=== PATIENT | female | born 1965 | race Caucasian/White ===

== ENCOUNTER 2024-10-25 19:52 | Inpatient (IN) | payer OTHER, SELFPAY ==
[2024-10-25] VITALS (7 sets, daily range): BP systolic 107–126; BP diastolic 67–95; BMI 44.5; BMI 44.2
[2024-10-25 15:41] LABS: % Basophils 0.1 % (0-2); % Eosinophils 0.9 % (0-6); % Immature Granulocytes 0.4 % (0-0.5); % Lymphocytes 16.7 % (20.5-51.1); % Monocytes 5.7 % (1.7-9.3); % Neutrophils 76.2 % (42.2-75.2); Absolute Eosinophils 0.1 10^3/uL (0-0.7); Absolute Lymphocytes 1.2 10^3/uL (1.2-3.4); Absolute Monocytes 0.4 10^3/uL (0.1-0.6); Absolute Neutrophils 5.6 10^3/uL (1.4-6.5); Hematocrit 36.2 % (37.0-47.0); Hemoglobin 12.3 g/dL (12.0-16.0); Mean Corpuscular Volume 88.3 fL (81.0-99.0); Nucleated Red Blood Cells % 0 %; Platelet Count 242 10^3/uL (130-400); Red Cell Dist. Width 13.2 % (11.5-14.5); White Blood Cell Count 7.4 10^3/uL (4.8-10.8)
[2024-10-25 15:55] LABS: ALT (SGPT) 30 U/L (0-35); AST (SGOT) 33 U/L (14-36); Albumin 4.2 g/dl (3.5-5.0); Alkaline Phosphatase 89 U/L (38-126); Blood Urea Nitrogen 19 mg/dl (7-17); COVID-19 Antigen Negative (Negative); Calcium 9.4 mg/dl (8.4-10.2); Carbon Dioxide 24 mmol/L (22-30); Chloride 101 mmol/L (98-107); Glucose 129 mg/dl (70-99); Potassium 4.6 mmol/L (3.5-5.1); Sodium 136 mmol/L (135-145); Total Bilirubin 0.2 mg/dl (0.2-1.3); Total Protein 6.8 g/dl (6.3-8.2); eGFR > 60.00
--- NOTE | 2024-10-25 16:01 | ED.GENMED ---
History of Present Illness
General
Chief Complaint: Breathing Problem
Source: patient
Exam Limitations: none
Time Seen by Provider: 10/25/24 15:38
Nursing documentation reviewed up to this point in time: agreed with
History of Present Illness
History of Present Illness:
58 y/o F
h/ obreast cancer treated with double mastectomy and chemo/radiation in the past
here with 1 week URI sxs, sore throat, cough; bu tthen fever x 2-3 days with increased SOB today
pt says her family has similar symptoms of cold symptoms and they are getting better and she is worse
she has not had any leg swelling, ,recent travel, h/o DVT/PT
pt wastaking tylenol the past 2 days, 1500 mg per dose a few times a day
none today
frequently coughing
no h/o wheezing/copd
Past History
Past History
ED Past Medical History: Cancer (breast)
ED Past Surgical History: Urological and Other (Mastectomy bilateral)
Social History
Tobacco: Smoker
Alcohol: None
Drug: None
Personal:
Living: with family
Employment: Other (Noncontributory)
Family History
Family History: Other (Noncontributory)
Review of Systems
Review of Systems
Allergies reviewed?: Yes
All Other Systems: Not applicable
Phy Exam
Physical Exam
Physical Exam:
GENERAL: Alert , tachypneic, frequently coughing
EYE: pupils equal and reactive
NECK: Supple
ENT: b/l TM s clear, pharynx erythematous but no tonsillar hypertrophy or exudates
CARDIAC: Tachycardic, no edema
LUNGS: Frequent spastic cough, expiratory wheezing throughout, mild tachypnea
ABDOMEN: Soft, without focal tenderness, no r/g, no cvat, normal bowel sounds
NEUROLOGICAL: Alert and oriented, no focal neuro deficits
SKIN: Warm and diaphoretic, skin intact.
MUSCULOSKELETAL: No edema, well perfused.
PSYCH: Normal and appropriate interaction.
Scores
Heart Failure Risk
Heart Failure Risk Score: Not Applicable
Sepsis
Sepsis Screening
Sepsis Assessment: Sepsis
Sepsis Screen
Sepsis Screen: Sepsis
Date: 10/25/24
Time: 17:06
Course
Orders/Labs/Results
Orders:
Orders
10/25/24 15:12
EKG [Electrocardiogram (*1)] Urgent
Reason for Study: Shortness of Breath
CR Chest - 2 Views Urgent
Comment:
Reason For Exam: SOB, cough
10/25/24 15:13
EKG- Treatment ONCE
10/25/24 15:25
Acetaminophen Urgent
Comment: ADDON
COVID-19 Antigen Urgent
Source: Nasal Swab
Complete Blood Count/With Diff Urgent
Comprehensive Metabolic Panel Urgent
Influenza A+B Rapid Molecular Urgent
MARAL Source: Nasal Swab
Specimen Description:
10/25/24 15:58
Add On- LAB Urgent
Tests Added?: tylenol level
0.9% Sodium Chloride 1000 ml [Nss] 1,000 ml IV BOLUS
Dexamethasone Sod Phosphate [Decadron] 10 mg IV NOW STA
Ibuprofen [Motrin] 800 mg PO NOW STA
Ipratropium/Albuterol Sulfate [Duoneb] 3 ml INH R NOW STA
10/25/24 15:59
Lactic Acid Urgent
10/25/24 16:00
Lactic Acid Q4H
Comment: CANCEL 2nd LACTIC ACID IF 1st LACTIC ACID IS LESS THAN 2
10/25/24 16:58
Blood Culture Urgent
MARAL Source: Blood/Venous
Specimen Description:
Azithromycin 500 mg/250 ml [Zithromax Infusion] 500 mg in 250 ml IV NOW
CefTRIAXone [Rocephin] 1,000 mg IV NOW STA
Ipratropium/Albuterol Sulfate [Duoneb] 3 ml INH R NOW STA
Oseltamivir Phosphate [Tamiflu] 75 mg PO NOW STA
10/25/24 20:00
Lactic Acid Q4H
Comment: CANCEL 2nd LACTIC ACID IF 1st LACTIC ACID IS LESS THAN 2
Abnormal Lab Results
10/25/24
15:25
RBC 4.10 L 10^6/uL
(4.20-5.40)
Hct 36.2 L %
(37.0-47.0)
Neutrophils % 76.2 H %
(42.2-75.2)
Lymphocytes % 16.7 L %
(20.5-51.1)
BUN 19 H mg/dl
(7-17)
Glucose 129 H mg/dl
(70-99)
10/25/24 15:25
10/25/24 15:25
Vital Signs
Initial and Last Documented VS:
Initial Vital Signs
Temp Pulse Resp Pulse Ox
39.3 C H 131 18 98
10/25/24 15:11 10/25/24 15:11 10/25/24 15:11 10/25/24 15:11
Last Documented Vital Signs
Temp Pulse Resp Pulse Ox
39.1 C H 131 18 98
10/25/24 15:53 10/25/24 15:11 10/25/24 15:11 10/25/24 15:11
MDM/Problems Addressed
Differential Diagnosis Includes:
flu, pna, copd, covid, pe
MDM/Problems Addressed:
58 y/o F smoker, h/o remote breast Ca
1 week uri sxs, fever x 2-3 days, sob today
febrile, tachy, not hypoxic, tachypneic, wheezing, spastic cough
flu A +
cxr with interstitial PNA right upper and middle lobe
doubt PE; tachycardia resolving with ivf, tylenol
but wheezing persists
tachypnea did not improve
will admit
getting duonebs, steroids, tamiflu, abx
*Critical Care Note
Total Time (30-74mins, 75-104mins- exclusive of procedures): Not Applicable
ED Attending Note
-
Portions of this chart may have been created with voice recognition software.� Occasional wrong word or��sound alike� substitutions may have occurred due to the inherent limitations of voice recognition software.
Discharge Plan
Departure
Patient Disposition: Admit
Date of Disposition: 10/25/24
Time of Disposition: 16:59
Admit to: Telemetry
Presentation/result/management discussed w/ accepting MD/DO: Hospitalist
Condition: Fair
Covid-19: Not Applicable
Discharge Problem:
Influenza A, Pneumonia, Acute bronchospasm
Prescriptions:
No Action
lorazepam 0.5 MG tablet
0.5 mg PO DAILYPRN PRN (Reason: anxiety)
Advil PM 1 TAB tablet
1 tab PO HSPRN PRN (Reason: sleep)
cyanocobalamin (vitamin B-12) 1,000 MCG tablet
1,000 mcg PO HS
Letrozole
1 tab PO DAILY
Patient Comments:
pt does not know mg
sertraline 150 mg Capsule
150 mg PO HS
lutein
1 cap PO DAILY
Patient Comments:
pt does not know mg
hydrocodone-acetaminophen 5-325 mg Tablet
2 tab PO Q4HPRN PRN (Reason: dental pain)
Amoxicillin Clavulanate
125 mg PO BID
Referrals:
SNELL,ROSALBA [Other]
Interventions
Interventions:
*Risk Screen - Suicide Last Done: 10/25/24 15:11
*General Assessment Last Done: 10/25/24 15:11
*Neglect/Abuse Screening Last Done: 10/25/24 15:11
*ED COVID-19 Vaccine History Last Done: 10/25/24 15:11
Discharge Date and Time
Print Language: WELSH
[2024-10-25] MEDS: DUONEB 3 ML INH ×2 (16:02→17:09)
[2024-10-25] MEDS: DECADRON 10 MG IV (16:02)
[2024-10-25] MEDS: MOTRIN 800 MG PO (16:02)
[2024-10-25] MEDS: NSS 1000 IV ×3 (16:03→23:08)
[2024-10-25] MEDS: TAMIFLU 75 MG PO (17:11)
[2024-10-25] MEDS: ROCEPHIN 1000 MG IV (17:11)
[2024-10-25] MEDS: ZITHROMAX INFUSION 250 IV (17:11)
[2024-10-25 17:28] LABS: Acetaminophen 17 ug/ml (10-30)
--- NOTE | 2024-10-25 19:20 | HPS.HSE ---
Family Physician
-
Family Physician: ROSALBA SNELL
Chief Complaint
-
Cough
History of Present Illness
58 woman with h/o breast cancer (treated with double mastectomy and chemo/radiation in the past) comes in with 1 week URI sxs, sore throat, cough; also fever x 2-3 days with increased SOB today. pt says her family has had similar symptoms of cold
symptoms and they are getting better and she is getting worse. she has not had any leg swelling, ,recent travel, h/o DVT/PT. She is an active smoker. No flu shot this year.
Medical History
Past Medical History
Past Medical History: Reports Other
Additional Past Medical History:
Cancer (breast)
Mastectomy bilateral
Cellulitis of chest wall with abscess
DVT
Past Surgical History: Reports Other
Additional Past Surgical History:
See above
Social History
Tobacco: Smoker
Alcohol: None
Drug: None
Family History
Family History: Not pertinent
Allergies / Home Medications
Allergies reflects when Allergies were last updated in [facility].
Home Medications with original date entered in [facility]
Allergy/Medication List:
Allergies
Allergy/AdvReac Type Severity Reaction Status Date / Time
No Known Allergies Allergy Verified 10/25/24 15:14
Home Medications
lorazepam 0.5 mg tablet 0.5 mg PO DAILYPRN PRN anxiety 11/17/19
ibuprofen-diphenhydramine citrate 200 mg-38 mg tablet (Advil PM) 1.5 tab PO HS 03/17/20
letrozole 2.5 mg tablet 2.5 mg PO HS 12/04/21
acetaminophen 500 mg tablet (Tylenol Extra Strength) 1,000 mg PO Q6HPRN PRN mild pain/fever 10/25/24
sertraline 100 mg tablet 150 mg PO HS 10/25/24
Review of Systems
-
History Source: Patient
A 12 point ROS was completed and negative except as noted: Yes
Physical Exam
Vital Signs
Vital Signs
Temp Pulse Resp BP Pulse Ox
98.4 F 101 20 125/94 97
10/25/24 18:54 10/25/24 18:45 10/25/24 18:45 10/25/24 17:00 10/25/24 18:45
Physical Exam
General: Well Nourished, Respiratory Distress, Appears Chronically Ill and Morbidly Obese
HEENT: No Ptosis, Nose Appears Normal and Ears Appear Normal
Respiratory: Wheezes, Rales, Rhonchi, Crackles and Decreased Breath Sounds
Cardiac: S1/S2 and Regular Rhythm
GI: Soft, Non Tender and Non Distended
Musculoskeletal: No Clubbing, No Cyanosis, Edema, Left Lower Extremity and Edema, Right Lower Extremity
Skin: Warm and Dry; No Rash or Jaundice
Neuro: Awake, Alert, Oriented and AO x 3
Psych: Calm
Laboratory Results
-
10/25/24 15:25
10/25/24 15:25
Laboratory Results
Lactic Acid Cancelled 10/25/24 20:00
Total Bilirubin 0.2 mg/dl (0.2-1.3) 10/25/24 15:25
AST 33 U/L (14-36) 10/25/24 15:25
ALT 30 U/L (0-35) 10/25/24 15:25
Alkaline Phosphatase 89 U/L (38-126) 10/25/24 15:25
Data Reviewed
-
Lab Data: Labs Reviewed by me
Impression/Plan
-
IMPRESSION:
58 woman with PNA and influenza. Low blood pressure of 60/30 during my exam.
PLAN:
1. Sepsis - pulmonary source
IMU admit
IV fluids per sepsis protocol
Pressors if needed (if no response to fluids)
Tamiflu
Antibiotics
2. Continued smoking - wilton her to quit
Nicotine patch
3. H/O breast cancer
Continue BC meds
Full code
Heparin and VCD for DVTp (has h/o DVT)
[2024-10-25] MEDS: ZOSYN 100 IV (23:08)
[2024-10-25] MEDS: DECADRON 4 MG IV (23:09)
[2024-10-25] MEDS: FEMARA 2.5 MG PO (23:11)
[2024-10-25] MEDS: ZOLOFT 150 MG PO (23:17)
[2024-10-25] MEDS: HEPARIN 5000 UNITS SC (23:20)
[2024-10-25] MEDS: MELATONIN 5 MG PO (23:51)
[2024-10-26 03:34] VITALS: BP 106/62
[2024-10-26] MEDS: ZOSYN 100 IV ×2 (04:42→10:39)
[2024-10-26] MEDS: DECADRON 4 MG IV ×2 (04:42→10:39)
[2024-10-26] MEDS: NSS 1000 IV ×2 (05:48→08:27)
[2024-10-26 07:28] LABS: Hematocrit 33.9 % (37.0-47.0); Hemoglobin 11.7 g/dL (12.0-16.0); Mean Corp Hgb Conc. 34.5 g/dL (33.0-37.0); Mean Corpuscular Hgb 30.6 pg (27.0-31.0); Mean Corpuscular Volume 88.7 fL (81.0-99.0); Mean Platelet Volume 9.3 fL (7.4-10.4); Platelet Count 239 10^3/uL (130-400); Red Blood Cell Count 3.82 10^6/uL (4.20-5.40); Red Cell Dist. Width 13.4 % (11.5-14.5); White Blood Cell Count 7.3 10^3/uL (4.8-10.8)
[2024-10-26 07:57] VITALS: BP 98/63
[2024-10-26 08:05] LABS: ALT (SGPT) 26 U/L (0-35); AST (SGOT) 25 U/L (14-36); Albumin 3.9 g/dl (3.5-5.0); Alkaline Phosphatase 94 U/L (38-126); Blood Urea Nitrogen 18 mg/dl (7-17); Carbon Dioxide 17 mmol/L (22-30); Chloride 110 mmol/L (98-107); Estimated Creatinine Clearance > 125 ml/min; Glucose 193 mg/dl (70-99); Potassium 4.6 mmol/L (3.5-5.1); Sodium 138 mmol/L (135-145); Total Bilirubin < 0.1 mg/dl (0.2-1.3); Total Protein 6.5 g/dl (6.3-8.2); eGFR > 60.00
[2024-10-26] MEDS: NICODERM TRANSDERMAL 21 MG TRANSDERM (08:28)
[2024-10-26] MEDS: HEPARIN 5000 UNITS SC ×3 (08:29→23:03)
--- NOTE | 2024-10-26 09:31 | CON.INTV ---
Consultation
Consultation Request
Date/Time Consultation Requested: 10/25/20242105
Date/Time Consultation Performed: 10/26/2024919
Requesting Provider: Dr. Olivas
Performing Provider: Dr. Peterson
Reason for Consultation: PNA
Medical History
-
Chief Complaint: Cold/flu symptoms with fever and cough
History of Present Illness:
58-year-old female with a past medical history of right-sided breast cancer s/p bilateral mastectomy s/p chemotherapy/XRT who presents with flulike symptoms for 1 week with fever and cough. Family is also sick. Patient developed worsening
shortness of breath prior to arrival. She has denied recent leg swelling, recent travel, history of DVT/PE. She is an active tobacco smoker. Initially in the ER she was febrile to 102.8 �F, pulse rate 131, breathing at 18 breaths/min, BP 126/70
and saturating 98% on room air. Initial labs showed Hb 12.3, COVID antigen negative. Flu swab was positive for influenza A. Blood cultures were collected. Imaging showed concern for right upper + right middle lobe interstitial pneumonia. In the
ER she was given 1 L NS 0.9%, ceftriaxone/Zithromax, Decadron 10 mg, ibuprofen, DuoNebs and Tamiflu. She was admitted to the hospitalist service and telemetry and seal delivery vehicle team technician/pulmonary service consulted for additional management/recommendations.
When I saw the patient she was resting in bed, on room air breathing comfortably. She endorses shortness of breath as well as a dry cough. She says that all 4 of her kids and were sick recently. She currently feels nauseous and is having
heartburn. Also feels stuffed in her nose. She is continue to smoke, and has been smoking 1 pack/day for ~43 years, started smoking at age 15. She currently denies chest pain, HERNANDEZ, diarrhea, fevers or chills.
PMHx: Right breast cancer s/p bilateral mastectomy and chemotherapy/XRT, history of left breast infection
PSHx: Right breast biopsy (05/2019), bilateral mastectomy with right sentinel node mapping and biopsy with lymphatic mapping
Past Medical History
Past Medical History: Other (Above as per HPI)
Past Surgical History: Other (Above as per HPI)
Social History
Tobacco: Smoker (Started smoking at age 15, 1 PPD x 43 years)
Alcohol: None
Drug: None
Family History
Family History: CAD (Mother) and Other (Father: Stroke)
Allergies / Home Medications
Allergies
Allergy/AdvReac Type Severity Reaction Status Date / Time
No Known Allergies Allergy Verified 10/25/24 15:14
Home Medications
�Medication �Instructions �Recorded �Confirmed �Last Taken �Type
lorazepam 0.5 mg tablet 0.5 mg PO DAILYPRN PRN anxiety 11/17/19 10/25/24 2 Weeks Ago History
~03/03/20
ibuprofen-diphenhydramine citrate 1.5 tab PO HS 03/17/20 10/25/24 10/24/24 History
200 mg-38 mg tablet (Advil PM)
letrozole 2.5 mg tablet 2.5 mg PO HS 12/04/21 10/25/24 10/24/24 History
acetaminophen 500 mg tablet 1,000 mg PO Q6HPRN PRN mild 10/25/24 10/25/24 10/25/24 History
(Tylenol Extra Strength) pain/fever
sertraline 100 mg tablet 150 mg PO HS 10/25/24 10/25/24 10/24/24 History
Review of Systems
-
History Source: Patient
All other systems: Negative unless noted
Vitals / Labs / Diagnostic Testing
Vital Signs
Temp Pulse Resp BP Pulse Ox
98.3 F 69 18 116/7 97
10/26/24 15:33 10/26/24 15:33 10/26/24 15:33 10/26/24 15:33 10/26/24 15:33
Lab Data
10/26/24 07:13
10/26/24 07:13
Microbiology
10/25/24 23:55 Blood/Venous Blood Culture - Preliminary
No Growth in 24 hours- Final report to follow
10/25/24 15:25 Nasal Swab Influenza Types A & B (GRACIELA) - Final
Influenza A Positive, NAAT
Diagnostic Testing:
Physical Exam
-
HEENT: Normocephalic, Anicteric and Other (Thick neck)
Cardiovascular: S1/S2 and Peripheral Edema (negative)
Respiratory: Wheeze (negative), Rhonchi (negative), Non-Labored Respirations and Other (Coarse breath sounds heard bilaterally)
GI: Soft, Distended (Abdominal obesity), Non Tender and Normal Bowel Sounds
Neurology: AO x 3 and Tremors (negative)
Skin: Warm and Dry
General: Respiratory Distress (negative), Comfortable, Fever (negative) and Chills (negative)
Assessment
-
Assessment: 58-year-old female with a past medical history of right-sided breast cancer s/p bilateral mastectomy s/p chemotherapy/XRT who presents with flulike symptoms for 1 week with fever and cough. Family is also sick. Patient developed
worsening shortness of breath prior to arrival. She has denied recent leg swelling, recent travel, history of DVT/PE. She is an active tobacco smoker. Initially in the ER she was febrile to 102.8 �F, pulse rate 131, breathing at 18 breaths/min,
BP 126/70 and saturating 98% on room air. Initial labs showed Hb 12.3, COVID antigen negative. Flu swab was positive for influenza A. Blood cultures were collected. Imaging showed concern for right upper + right middle lobe interstitial
pneumonia. In the ER she was given 1 L NS 0.9%, ceftriaxone/Zithromax, Decadron 10 mg, ibuprofen, DuoNebs and Tamiflu. She was admitted to the hospitalist service and telemetry and seal delivery vehicle team technician/pulmonary service consulted for additional
management/recommendations.
Chronic conditions RN ACUTE DIALYSIS: Right breast cancer s/p bilateral mastectomy and chemotherapy/XRT, history of left breast infection
Impression:
#Acute respiratory failure with hypoxia now on room air due to influenza A
#Influenza A pneumonia
#History of right-sided breast cancer s/p bilateral mastectomy and chemotherapy/XRT
#Morbid obesity with BMI: 44.1
#Active tobacco use
Plan:
- Given that symptoms of her flu have started >48 hours ago, no current indication for Tamiflu
- Although CXR is read as right upper/right middle lobe interstitial pneumonia, I do not appreciate any obvious consolidation and any increased opacification is likely due to her influenza virus
- Continue with empiric antibiotics (ceftriaxone/Zithromax) as per hospitalist, but if she remains afebrile with normal WBC by tomorrow then would narrow antibiotics and give short course or consider stopping altogether
- Follow-up blood cultures x 3 (collected 10/25/2024)
- Would start scheduled DuoNebs QID with prn doses in between for breakthrough symptoms
- Nicotine patch; strongly encouraged to quit smoking
- Recommend outpatient pulmonary office follow up for full PFTs and symptom management
- Maintain SpO2 >90-94% with supplemental O2 if needed
- Given that pt has a dry cough, I will start a LABA/ICS with Symbicort 160mcg; she should be discharged on this (or an equivalent inhaler) until she sees us in the office
- Antitussants with tessalon perles
- Start ocean mist nasal spray QID
- Start pepcid for her heartburn and prn zofran (trend QTc: 430ms on 10/25/2024)
- Maintain MAP>65
- Replete electrolytes with K>4, Mg>2
- Maintain euglycemia with goal BG 140-180
- Trend H/H and transfuse if needed to keep Hb>7g/dL; keep plt>20k, unless there is concern for bleeding then keep plt>50k
- Incentive spirometer encouraged 10x per hour for at least 4 hrs a day
- DVT ppx: HSQ
Continue management on telemetry. Pulmonary service will continue to follow along. Outpatient office follow-up will also be arranged for discussion of LDCT chest imaging for lung cancer screening/PFT and discussion of sleep disordered breathing.
Data:
CXR 10/25/2024: Right upper lobe and right middle lobe interstitial pneumonia
Total time spent today was 56 minutes for this encounter. Time includes reviewing laboratory test/imaging results, reviewing pertinent medical records, obtaining and reviewing medical history, performing an appropriate exam, ordering medications,
tests and procedures. Time also includes documentation of this encounter, coordinating patient care and communicating with other healthcare professionals. Total time does not include separately billed tests performed on this date of service.
[2024-10-26 09:45] LABS: Glycohemoglobin (HgbA1c) 6.4 % (4.0-5.6)
[2024-10-26 11:16] VITALS: BP 126/72
--- NOTE | 2024-10-26 11:25 | W.PN.HOSP.TC ---
Today's Communication/Plan
-
Stop fluids
Wean O2 as tolerated
Ceftriaxone, azithromycin
Cultures
Stop steroids, monitor
Status parameter, Acapella
Assessment / Plan
Assessment / Plan
Physical Exam
General: Well Nourished, Respiratory Distress, Appears Chronically Ill and Morbidly Obese
HEENT: No Ptosis, Nose Appears Normal and Ears Appear Normal
Respiratory: Wheezes, Rales, Rhonchi, Crackles and Decreased Breath Sounds
Cardiac: S1/S2 and Regular Rhythm
GI: Soft, Non Tender and Non Distended
Musculoskeletal: No Clubbing, No Cyanosis, Edema, Left Lower Extremity and Edema, Right Lower Extremity
Skin: Warm and Dry; No Rash or Jaundice
Neuro: Awake, Alert, Oriented and AO x 3
Psych: Calm
#Sepsis
#Hypoxia
#Influenza
� Status post fluids
� Can continue antibiotics, switch ceftriaxone, azithromycin
� Follow-up procalcitonin
� Follow-up sputum cultures expectorating, Legionella, strep pneumo
� Symptom started 1 week ago, out of range for Tamiflu
� Discontinue steroids, history of COPD, no evidence of bronchospasm�if bronchospasms recur, can reinitiate steroids
� Wean O2 as tolerated
� incentive spirometry, Acapella
#Non-anion gap metabolic acidosis
� Secondary to saline infusion
� Stop normal saline, monitor bicarb
#Tobacco use
� Counseled on cessation
� Nicotine patch
#History of breast cancer
� Continue medications
#DVT prophylaxis
� HSQ
Anticipated Discharge: 24 - 48 hours
Subjective/Interval History
-
Date of Service: October 26, 2024
Coughing with pleuritic pain.
Objective Data
-
Labs:
Laboratory Results
10/26/24
07:13
WBC 7.3
Hgb 11.7 L
Hct 33.9 L
Plt Count 239
Sodium 138
Potassium 4.6
Chloride 110 H
Carbon Dioxide 17 L
BUN 18 H
Creatinine 0.6
Glucose 193 H
Calcium 9.0
Total Bilirubin < 0.1 L
AST 25
ALT 26
Alkaline Phosphatase 94
Vital Signs:
Vital Signs
Temp Pulse Resp BP Pulse Ox
97.8 F 73 16 126/72 98
10/26/24 11:16 10/26/24 11:16 10/26/24 11:16 10/26/24 11:16 10/26/24 11:16
I&O
10/25/24 10/26/24 10/27/24
06:59 06:59 06:59
Intake Total 2760 / 2760
Balance 2760 / 2760
Review of Systems
-
History Source: Patient
All other systems: Not reviewed unless documented
Data Reviewed
-
Diagnostic Radiology: Report Reviewed by me
Labs: Labs Reviewed by me
[2024-10-26] MEDS: TYLENOL 1000 MG PO (13:22)
[2024-10-26 15:30] LABS: Procalcitonin < 0.05 ng/ml (0.0-0.25)
[2024-10-26 15:33] VITALS: BP 116/7
[2024-10-26] MEDS: ROCEPHIN 1000 MG IV (16:59)
[2024-10-26] MEDS: STERILE WATER FOR INJECTION 10 ML IV (16:59)
[2024-10-26] MEDS: ZITHROMAX INFUSION 250 IV (17:00)
[2024-10-26] MEDS: DUONEB 3 ML INH (19:26)
[2024-10-26] MEDS: SYMBICORT 160/4.5 MCG INHALER 2 PUFF INH (19:26)
[2024-10-26] MEDS: PEPCID 20 MG IV (19:46)
[2024-10-26] MEDS: NSS (PRESERVATIVE FREE) 8 ML IV (19:47)
[2024-10-26 19:50] VITALS: BP 119/67
[2024-10-26] MEDS: FEMARA 2.5 MG PO (22:24)
[2024-10-26] MEDS: ZOLOFT 150 MG PO (22:24)
[2024-10-26] MEDS: TESSALON PERLES 200 MG PO (22:24)
[2024-10-26] MEDS: OCEAN, SALINE MIST NASAL (22:27)
[2024-10-26] MEDS: OCEAN, SALINE MIST 2 SPRAYS NASAL (23:03)
[2024-10-26 23:08] VITALS: BP 118/61
[2024-10-27 03:28] VITALS: BP 120/75
[2024-10-27] MEDS: SYMBICORT 160/4.5 MCG INHALER 2 PUFF INH (07:09)
[2024-10-27] MEDS: DUONEB 3 ML INH (07:09)
[2024-10-27 07:20] VITALS: BP 113/61
[2024-10-27 08:54] LABS: Hematocrit 32.8 % (37.0-47.0); Hemoglobin 10.8 g/dL (12.0-16.0); Mean Corp Hgb Conc. 32.9 g/dL (33.0-37.0); Mean Corpuscular Hgb 30.3 pg (27.0-31.0); Mean Corpuscular Volume 91.9 fL (81.0-99.0); Mean Platelet Volume 9.3 fL (7.4-10.4); Platelet Count 262 10^3/uL (130-400); Red Blood Cell Count 3.57 10^6/uL (4.20-5.40); Red Cell Dist. Width 13.7 % (11.5-14.5); White Blood Cell Count 11.4 10^3/uL (4.8-10.8)
[2024-10-27] MEDS: PEPCID 20 MG PO (09:32)
[2024-10-27] MEDS: NICODERM TRANSDERMAL 21 MG TRANSDERM (09:32)
[2024-10-27] MEDS: HEPARIN SC (09:32)
[2024-10-27] MEDS: OCEAN, SALINE MIST 2 SPRAYS NASAL (09:33)
[2024-10-27 09:35] LABS: ALT (SGPT) 36 U/L (0-35); AST (SGOT) 37 U/L (14-36); Albumin 3.7 g/dl (3.5-5.0); Alkaline Phosphatase 84 U/L (38-126); Blood Urea Nitrogen 19 mg/dl (7-17); Calcium 8.8 mg/dl (8.4-10.2); Carbon Dioxide 23 mmol/L (22-30); Chloride 108 mmol/L (98-107); Estimated Creatinine Clearance 94 ml/min; Glucose 100 mg/dl (70-99); Potassium 3.8 mmol/L (3.5-5.1); Sodium 141 mmol/L (135-145); Total Bilirubin < 0.1 mg/dl (0.2-1.3); Total Protein 6.2 g/dl (6.3-8.2); eGFR > 60.00
--- NOTE | 2024-10-27 10:44 | W.PN.HOSP.TC ---
Today's Communication/Plan
-
Continue with Symbicort and DuoNebs as needed at discharge
Follow-up with pulmonology for PFTs
Nicotine patches and smoking cessation
Assessment / Plan
Assessment / Plan
#Acute hypoxemic respiratory insufficiency
#Influenza
#Bronchospasm
-Suspected bronchospasm with possibly underlying COPD in the context of flu
-Does have an extensive smoking history, likely to have underlying parenchymal disease
-Symptoms started 1 week prior to arrival; was out of range for Tamiflu treatment
-Sputum cultures negative, blood cultures negative
-Was started on Symbicort, as needed DuoNebs
-Oxygen since weaned to room air, no signs of bronchospasm today
-SpO2 97% on RA this morning
-Plan to DC on Symbicort with pulmonology follow-up for PFTs
#Tobacco use
-Counseled on importance for cessation
-Will provide 1 month prescription for nicotine patches at discharge
#History of breast cancer
-S/p chemoradiation and bilateral mastectomy
-Remains on letrozole nightly
DVT prophylaxis: Heparin subcutaneous
Diet: Regular
CODE STATUS: Full code
Disposition: Discharge home today
Anticipated Discharge: Today
Subjective/Interval History
-
Date of Service: October 27, 2024
Seen and examined at the bedside. No acute events reported overnight. AFVSS on room air this morning
She states she feels well and would like to leave the hospital. Denies wheezing or shortness of breath, denies fevers
No new complaints.
Objective Data
-
Labs:
Laboratory Results
10/27/24
08:31
WBC 11.4 H
Hgb 10.8 L
Hct 32.8 L
Plt Count 262
Sodium 141
Potassium 3.8
Chloride 108 H
Carbon Dioxide 23
BUN 19 H
Creatinine 0.8
Glucose 100 H
Calcium 8.8
Total Bilirubin < 0.1 L
AST 37 H
ALT 36 H
Alkaline Phosphatase 84
Vital Signs:
Vital Signs
Temp Pulse Resp BP Pulse Ox
97.8 F 79 18 113/61 97
10/27/24 07:20 10/27/24 07:20 10/27/24 07:20 10/27/24 07:20 10/27/24 07:20
I&O
10/26/24 10/27/24 10/28/24
06:59 06:59 06:59
Intake Total 0 / 2760 1919
Balance 2760 / 2760 1919
Review of Systems
-
History Source: Patient
All other systems: Reviewed and negative
Physical Exam
-
General: Well Developed, No Apparent Distress, Comfortable and Morbidly Obese
HEENT: Normocephalic, Atraumatic and Moist Mucous Membranes
Respiratory: Non Labored Respirations and Decreased Breath Sounds; Negative Wheezes, Rales or Accessory Resp Muscle Use
Cardiac: Regular Rhythm and S1/S2; Negative Murmur, Rub or Gallop
GI: Soft, Nontender, Nondistended and Normal Bowel Sounds
Musculoskeletal: No Clubbing, No Cyanosis and No Edema
Skin: Warm, Dry and Normal Turgor; Negative Rash
Neuro: AO x 3 and Nonfocal/Grossly Intact
Psych: Calm
Data Reviewed
-
Labs: Labs Reviewed by me and Discussed with Patient
[2024-10-27] MEDS: TESSALON PERLES 200 MG PO (11:16)
--- NOTE | 2024-10-27 11:34 | CM ---
Patient seen bedside.
IA completed.
Patient lives with spouse and 4 daughters.
2 story home, independent prior to admission.
Works in [employer], [employer].
patient for d/c home today.
Spouse will transport.
Script given for nebulizer unit and they are in stock at [facility], patient knows where it is.
Patient with nicotine patch and interested in smoking cessation, support offered.
Discussed continuing patch, support groups and activities with patient.
PCP: AYANA acevedo
Pharmacy: [facility]
Plan: home no needs.
[2024-10-27 11:38] VITALS: BP 120/73
--- NOTE | 2024-10-27 14:29 | W.DCSUMMARY ---
Discharge Summary
Discharge Data
Date of Admission: 10/25/24
Date of Discharge: 10/27/24
-
Pending Results: No
Hospital Course
58-year-old female with breast cancer s/p chemoradiation, s/p bilateral mastectomy, tobacco use that presented to the ED with shortness of breath and wheezing. Viral serology in the ED was positive for influenza A virus. Also with possible
infiltrates to unilateral lung concerning for pneumonia. Was started on antibiotics upon arrival with ceftriaxone and doxycycline. Patient was outside of the symptomatic window for Tamiflu and this was not received. Examination consistent with
bronchospasm, suspected underlying COPD with her extensive smoking history. Was treated with supportive management and was comfortable on room air prior to being discharged from the hospital. Evaluated by casino gaming inspector who started Symbicort,
recommended PFTs as an outpatient. Was discharged with referral to casino gaming inspector, Symbicort 160 mg daily 2 puffs. Antibiotics discontinued due to low suspicion for bacterial pneumonia. Received 2 days of antibiotic therapy, pulmonology and
primary team in agreement to discontinue.
Discharge Plan
-
Patient Disposition: Home (Routine Discharge)
Discharge Diagnosis/Procedures: Influenza A
Bronchospasm
Smoking history
Condition: Fair
Diet: No restrictions
Activity: As tolerated
Driving Restrictions: No driving for 24 hours
Bathing Restrictions: None
Blood Work: None
Others Tests: Pulmonary function tests with pulmonology referral
Activity Restrictions/Additional Instructions:
Follow-up with your family physician within 1 to 2 weeks of discharge from the hospital
Schedule follow-up appointment with pulmonology referral, contact their office to schedule
Instructions: Wheezing
Referrals:
Shoaib Peterson MD [Active] - in two to four weeks (full PFTs on day of office visit)
UNKNOWN - PT NOT,INTERVIEWE [Family Provider] -
Additional Discharge Medication Instructions: Start Symbicort 2 puffs twice daily
Continue benzonatate 3 times daily as needed for cough for 1 week
Use ipratropium�albuterol nebulizer as needed for shortness of breath or wheezing
Start daily nicotine patch for cessation of tobacco use
Continue famotidine 20 mg twice daily
Prescriptions:
New
ipratropium-albuterol 0.5 mg-3 mg(2.5 mg base)/3 mL Solution For Nebulization
3 ml inhalation R TID PRN (Reason: shortness of breath or wheezing) 30 Days Qty: 90 0RF
nicotine 21 mg/24 hr Patch 24 Hour
21 mg transdermal DAILY 30 Days Qty: 28 0RF
famotidine 20 mg Tablet
20 mg PO BID 7 Days Qty: 14 0RF
budesonide-formoterol [Symbicort] 160-4.5 mcg/actuation Hfa Aerosol Inhaler
2 puff inhalation R BID 30 Days Qty: 10.2 0RF
benzonatate 100 mg Capsule
200 mg PO TID PRN (Reason: Cough) 7 Days Qty: 42 0RF
(DME) nebulizers [AeroEclipse II Nebulizer] Misc
See Rx Instructions .Route Qty: 1 0RF
Rx Instructions:
As directed
(DME) nebulizer accessories Kit
See Rx Instructions .Route Qty: 1 0RF
Rx Instructions:
As directed
Continued
lorazepam 0.5 MG tablet
0.5 mg PO DAILYPRN PRN (Reason: anxiety)
Advil PM 1 TAB tablet
1.5 tab PO HS
letrozole 2.5 mg Tablet
2.5 mg PO HS
sertraline 100 mg Tablet
150 mg PO HS
acetaminophen [Tylenol Extra Strength] 500 mg Tablet
1,000 mg PO Q6HPRN PRN (Reason: mild pain/fever)
Discharge Orders:
Discharge Patient (As Directed); Ordered 10/27/24
Ordered By: pM Hernandez
Discharge Date and Time
Discharge Date/Time: 10/27/24 11:56
Print Language: [email or web address]
== END 2024-10-27 11:56 | disposition home or self-care (01) | DRG 872 ==
LOC: 1 ACUTE 19:52
PROVIDERS: Emergency Medicine; Internal Medicine; Physician Assistant; ADMITTING PHYSICIAN Internal Medicine; ATTENDING PHYSICIAN Internal Medicine; CONSULT PHYSICIAN Internal Medicine Critical Care Medicine; EMERGENCY PHYSICIAN Student in an Organized Health Care Education/Training Program
DX: A41.9 Sepsis, unspecified organism (principal); Z68.41 Body mass index [BMI] 40.0-44.9, adult; J10.1 Influenza due to other identified influenza virus with other respiratory manifestations; E66.01 Morbid (severe) obesity due to excess calories; J44.9 Chronic obstructive pulmonary disease, unspecified; J98.01 Acute bronchospasm; F17.200 Nicotine dependence, unspecified, uncomplicated; R06.89 Other abnormalities of breathing; R09.02 Hypoxemia; Z92.3 Personal history of irradiation; Z92.21 Personal history of antineoplastic chemotherapy; Z90.13 Acquired absence of bilateral breasts and nipples; Z85.3 Personal history of malignant neoplasm of breast; Z86.718 Personal history of other venous thrombosis and embolism; Z86.711 Personal history of pulmonary embolism; Z20.822 Contact with and (suspected) exposure to COVID-19
CPT/HCPCS: 71046; 80053; 80143; 83036; 83605; 84145; 85025; 85027; 87040; 87449; 87502; 87811; 87899; 93005; 94640; 94660; 96361; 96365; 96375; 99285; 99406